=== PATIENT | female | born 1970 | race Caucasian/White ===

== ENCOUNTER 2021-06-06 04:22 | Emergency (ER) | payer BC ==
--- NOTE | 2021-06-06 04:38 | EDM.PDOC ---
<Rigo Hays - Last Filed: 06/06/21 06:58> ED HPI GENERAL MEDICAL PROBLEM - General Chief Complaint: Flank Pain Stated Complaint: KIDNEY STONES Time Seen by Provider: 06/06/21 04:37 - History of Present Illness INITIAL COMMENTS - FREE TEXT/NARRATIVE: 50-year-old female presents to the emergency room with flank pain. Patient has a history of kidney stones in the side. She believes she had a CT done several years ago that demonstrated a however she does not recall ever passing the stone. This pain started a short time ago she thought maybe she injured her back helping to reposition her father who has Covid. Then the pain became sharper and reminded her more of the kidney stone. She has some nausea no vomiting and is uncomfortable. She has not had any fevers or chills and has otherwise been feeling pretty good Left Flank Pain Score (Numeric/FACES): 9 - Related Data Allergies Allergy/AdvReac Type Severity Reaction Status Date / Time No Known Allergies Allergy Verified 06/06/21 04:58 Home Meds: Home Meds Hydrocodone/Acetaminophen [HYDROcodone-Acetaminophen 5-325 MG] 1 - 2 tab PO Q6H PRN #20 tab 06/06/21 [Rx] ED ROS GENERAL - Review of Systems Review Of Systems: See Below Constitutional: Reports: No Symptoms HEENT: Reports: No Symptoms Respiratory: Reports: No Symptoms Cardiovascular: Reports: No Symptoms GI/Abdominal: Reports: Abdominal Pain, Nausea. Denies: No Symptoms, Diarrhea, Vomiting : Reports: Flank Pain. Denies: Frequency, Hematuria, Urgency Musculoskeletal: Reports: No Symptoms Skin: Reports: No Symptoms ED EXAM, GENERAL - Physical Exam Exam: See Below Exam Limited By: No Limitations General Appearance: Alert, Mild Distress (From the pain) Head: Atraumatic, Normocephalic Neck: Normal Inspection, Supple, Non-Tender, Full Range of Motion Respiratory/Chest: No Respiratory Distress, Lungs Clear, Normal Breath Sounds Cardiovascular: Regular Rate, Rhythm, No Edema, No Murmur GI/Abdominal: Normal Bowel Sounds, Soft, Tender (Has some left-sided discomfort this is not worsened with palpation). No: Guarding, Rigid, Rebound Back Exam: Normal Inspection. No: CVA Tenderness (L) (She has some vague left- sided back pain not worsened with percussion), CVA Tenderness (R) Neurological: Alert, Oriented, Normal Cognition Course - Re-Assessments/Exams Free Text/Narrative Re-Assessment/Exam: 06/06/21 06:59 Is 2+ blood 4+ ketones negative leukocyte esterase or nitrates. CT KUB shows a 3 mm stone in the distal left ureter. At this point will discharge the patient I am instructed in no uncertain terms she needs to identify the stone when she passes it we will give her the stuff to strain her urine with. Departure - Departure Time of Disposition: 07:00 Disposition: Home, Self-Care 01 Clinical Impression: Kidney stone on left side - Discharge Information Prescriptions: Hydrocodone/Acetaminophen [HYDROcodone-Acetaminophen 5-325 MG] 1 - 2 tab PO Q6H PRN #20 tab PRN Reason: Pain (Severe 7-10) Instructions: Kidney Stones, [id number] Referrals: PCP,None [Primary Care Provider] - Forms: ED Department Discharge Additional Instructions: Return to the emergency room with any questions problems or worsening symptoms. Return immediately if you develop any fevers. Strain your urine and be certain to find your stone. Try and collect the stone if you can sometimes that useful to analyze the composition. I sent a prescription for [place], this is a pain medication hydrocodone/acetaminophen, to the [facility] on [address]. Take 1 or 2 of these every 6 hours as needed for pain allow 12 hours after using this medication before driving or returning to work. If you do not have a regular healthcare provider follow-up in the hospital clinic on Monday or for recheck. <Jeremy Day - Last Filed: 06/06/21 13:23> Course - Vital Signs Last Recorded V/S: Last Vital Signs Temp 36.4 C 06/06/21 07:28 Pulse 88 06/06/21 07:28 Resp 16 06/06/21 07:28 BP 110/90 06/06/21 07:28 Pulse Ox 98 06/06/21 07:28 - Orders/Labs/Meds Orders: Active Orders 24 hr Category Date Time Status UA W/MICROSCOPIC [URIN] Stat Lab 06/06/21 05:50 Results Labs: Laboratory Tests 06/06/21 06/06/21 06/06/21 Range/Units 04:35 04:35 05:50 WBC 9.69 (3.98-10.04) K/mm3 RBC 4.14 (3.98-5.22) M/mm3 Hgb 12.4 (11.2-15.7) gm/dl Hct 38.1 (34.1-44.9) % MCV 92.0 (79.4-94.8) fl MCH 30.0 (25.6-32.2) pg MCHC 32.5 (32.2-35.5) g/dl RDW Std Deviation 46.4 H (36.4-46.3) fL Plt Count 371 H (182-369) K/mm3 MPV 9.5 (9.4-12.3) fl Neut % (Auto) 72.2 H (34.0-71.1) % Lymph % (Auto) 18.4 L (19.3-51.7) % [place] % (Auto) 7.0 (4.7-12.5) % Eos % (Auto) 2.0 (0.7-5.8) Baso % (Auto) 0.2 (0.1-1.2) % Neut # (Auto) 7.00 H (1.56-6.13) K/mm3 Lymph # (Auto) 1.78 (1.18-3.74) K/mm3 [place] # (Auto) 0.68 H (0.24-0.36) K/mm3 Eos # (Auto) 0.19 (0.04-0.36) K/mm3 Baso # (Auto) 0.02 (0.01-0.08) K/mm3 Sodium 137 (136-145) mEq/L Potassium 3.6 (3.5-5.1) mEq/L Chloride 103 (98-107) mEq/L Carbon Dioxide 26 (21-32) mEq/L Anion Gap 11.6 (5-15) BUN 17 (7-18) mg/dL Creatinine 0.9 (0.55-1.02) mg/dL Est Cr Clr Drug Dosing TNP Estimated GFR (MDRD) > 60 (>60) mL/min BUN/Creatinine Ratio 18.9 H (14-18) Glucose 136 H (70-99) mg/dL Calcium 9.0 (8.5-10.1) mg/dL Total Bilirubin 0.5 (0.2-1.0) mg/dL AST 15 (15-37) U/L ALT 19 (14-59) U/L Alkaline Phosphatase 44 L (46-116) U/L Total Protein 7.3 (6.4-8.2) g/dl Albumin 3.9 (3.4-5.0) g/dl Globulin 3.4 gm/dL Albumin/Globulin Ratio 1.2 (1-2) Urine Color Light yellow (Yellow) Urine Appearance Cloudy H (Clear) Urine pH 7.0 (5.0-8.0) Ur Specific [place] 1.025 (1.005-1.030) Urine Protein 1+ H (Negative) Urine Glucose (UA) Negative (Negative) Urine Ketones 4+ H (Negative) Urine Occult Blood 2+ H (Negative) Urine Nitrite Negative (Negative) Urine Bilirubin Negative (Negative) Urine Urobilinogen 0.2 (0.2-1.0) Ur Leukocyte Esterase Negative (Negative) Meds: Medications Discontinued Medications Generic Name Dose Route Start Last Admin Trade Name William PRN Reason Stop Dose Admin Hydrocodone Bitart/Acetaminophen 2 tab 06/06/21 07:01 06/06/21 07:20 Acetaminophen/Hydrocodone 325-5 Mg Tab PO 06/06/21 07:02 2 tab ONETIME ONE Administration Sodium Chloride Confirm 06/06/21 04:39 06/06/21 05:12 Normal Saline Administered 06/06/21 04:40 Not Given Dose 1,000 mls @ as directed .ROUTE .STK-MED ONE Sodium Chloride 1,000 mls @ 50 mls/hr 06/06/21 04:45 06/06/21 04:43 Normal Saline IV 50 mls/hr ASDIRECTED AYDEN Administration Ketorolac Tromethamine 15 mg 06/06/21 05:17 06/06/21 05:20 Ketorolac 15 Mg/Ml Sdv IVPUSH 06/06/21 05:18 15 mg ONETIME ONE Administration Ketorolac Tromethamine 15 mg 06/06/21 05:53 06/06/21 05:58 Ketorolac 15 Mg/Ml Sdv IVPUSH 06/06/21 05:54 15 mg ONETIME ONE Administration Morphine Sulfate 4 mg 06/06/21 04:57 06/06/21 05:11 Morphine 4 Mg/Ml Syringe IVPUSH 06/06/21 04:58 4 mg ONETIME ONE Administration Ondansetron HCl Confirm 06/06/21 04:39 06/06/21 05:08 Ondansetron 4 Mg/2 Ml Sdv Administered 06/06/21 04:40 Not Given Dose 4 mg .ROUTE .STK-MED ONE Ondansetron HCl 4 mg 06/06/21 05:06 06/06/21 04:43 Ondansetron 4 Mg/2 Ml Sdv IVPUSH 06/06/21 05:07 4 mg ONETIME ONE Administration Sepsis Event Note (ED) - Focused Exam Vital Signs: Vital Signs Temp Pulse Resp BP Pulse Ox 06/06/21 07:28 36.4 C 88 16 110/90 98 06/06/21 04:55 36.4 C 75 18 116/77 100
[2021-06-06] MEDS ORDERED: Sodium Chloride 0.9% 1,000 ML ONE (04:39)
[2021-06-06] MEDS: Ondansetron 4 MG/2 ML SDV ONE ×2 (04:43→05:08)
[2021-06-06] MEDS ORDERED: Sodium Chloride 0.9% 1,000 ML IV SCH (04:45)
[2021-06-06] MEDS: Morphine 4 MG/ML Syringe IVPUSH ONE ×2 (05:05→05:11)
[2021-06-06] MEDS ORDERED: Ondansetron 4 MG/2 ML SDV IVPUSH ONE (05:06)
[2021-06-06] MEDS ORDERED: Ketorolac 15 MG/ML SDV IVPUSH ONE ×2 (05:17→05:53)
[2021-06-06] MEDS ORDERED: Acetaminophen/HYDROcodone 325-5 MG Tab PO ONE (07:01)
--- NOTE | 2021-06-06 08:24 | CT ---
CT abdomen and pelvis Technique: Multiple axial sections were obtained from above the dome of the diaphragm inferiorly through the pubic symphysis. Intravenous and oral contrast were not utilized. Study has been performed as a renal stone protocol. Reconstructed coronal and sagittal images were obtained. Comparison: No prior abdominal imaging is available. Findings: Very small calcification is seen within the right kidney measuring in the 1 to 1.5 mm range. Two nonobstructing calculi are noted within the left kidney. Largest nonobstructing stone lies within the lower pole measuring about 7 mm. Left kidney shows mild hydronephrosis. Left ureter is mildly dilated. Findings are suspicious for a small calcification within the distal left ureter measuring about 4.5 to 5 mm compatible with distal partially obstructing calculus. Small hiatal hernia is noted. Visualized lung bases show nothing acute. Liver contains no discrete abnormality. Spleen size is normal. Adrenal glands show no nodule. Gallbladder shows no discrete calcified gallstones. Pancreas shows no discrete abnormality. Abdominal aorta shows no aneurysm. No retroperitoneal adenopathy or mesenteric abnormalities are seen. No pelvic mass or adenopathy is noted. Very minimal fluid is seen within the pelvis believed to be physiologic. Appendix is seen and is normal in size. Bone window settings were reviewed which show mild degenerative change within the visualized lower thoracic spine. Minimal vacuum phenomena is seen within a mildly narrowed L5-S1 disc. Impression: 1. 4.5 to 5 mm partially obstructing stone which is believed to be present within the distal left ureter. This occurs slightly proximal to the UVJ. 2. Minimal nonobstructing calculi seen within both kidneys. 3. Small hiatal hernia. Minimal physiologic fluid is seen within the pelvis. Mild degenerative change within the spine. Diagnostic code #3 I agree with preliminary report from [facility], finalized on 06/06/21, 7:39 AM CDT, code 1
== END 2021-06-06 07:35 | disposition home or self-care (01) ==
LOC: JD.ED 04:22
DX: N13.2 Hydronephrosis with renal and ureteral calculous obstruction (principal)
CPT/HCPCS: 36415; 74176; 80053; 81001; 85025; 96374; 96375; 96376; 99284; A9270; J1885; J2270; J2405; J7030

== ENCOUNTER 2025-03-29 10:14 | Emergency (ER) | payer BC | END 2025-03-29 12:26 | disposition home or self-care (01) | LOC: JD.ED 10:14 | DX: L03.115 Cellulitis of right lower limb (principal); B34.9 Viral infection, unspecified; R93.89 Abnormal findings on diagnostic imaging of other specified body structures | CPT/HCPCS: 99283; 99284 ==